=== PATIENT | male | born 1980 | race Caucasian/White ===

== ENCOUNTER 2022-08-12 17:40 | Emergency (ER) | payer OTHER ==
[~2022-08-12] VITALS: Ht 177.8 cm; Wt 100.0 kg
[~2022-08-12 17:40] MED LIST: OXYC-145 PO
[2022-08-12 17:47] VITALS: BP 143/92
[2022-08-12] MEDS ORDERED: LIDOCAINE 2%/EPI 1:100,000 inj. Multi-dose 20 ML VIAL IJ ONE (18:45)
[2022-08-12] MEDS ORDERED: TETanus/Pertussis (Acell)/Diphther VAC/PF (Tdap-Adult) 0.5ml syringe IMVAC ONE (18:45)
[2022-08-12] MEDS ORDERED: cephalexin 500mg capsule PO ONE (19:55)
[2022-08-12] MEDS ORDERED: CEPH250T PO (19:57)
== END 2022-08-12 20:42 | disposition home or self-care (01) ==
LOC: ER 17:41
DX: S61.215A Laceration without foreign body of left ring finger without damage to nail, initial encounter (principal); Z88.5 Allergy status to narcotic agent; X58.XXXA Exposure to other specified factors, initial encounter; Y93.89 Activity, other specified; Y92.89 Other specified places as the place of occurrence of the external cause; Y99.8 Other external cause status
CPT/HCPCS: 12001; 73130; 90471; 90715; 99283; A6222; J7030; A4565; A6449

== ENCOUNTER 2022-08-25 08:22 | Emergency (ER) | payer OTHER ==
[~2022-08-25] VITALS: Ht 175.3 cm; Wt 100.0 kg
[2022-08-25 08:31] VITALS: BP 112/74
== END 2022-08-25 11:45 | disposition home or self-care (01) ==
LOC: ER 08:23
DX: S61.215D Laceration without foreign body of left ring finger without damage to nail, subsequent encounter (principal); Z79.899 Other long term (current) drug therapy; X58.XXXD Exposure to other specified factors, subsequent encounter
CPT/HCPCS: 99281

== ENCOUNTER 2022-09-19 07:36 | Emergency (ER) | payer OTHER ==
[~2022-09-19] VITALS: Ht 177.8 cm; Wt 102.0 kg
[2022-09-19 07:40] VITALS: BP 132/80
[2022-09-19] MEDS ORDERED: MUPI22OI30 TOP (09:25)
== END 2022-09-19 10:34 | disposition home or self-care (01) ==
LOC: ER 07:37
DX: S61.305A Unspecified open wound of left ring finger with damage to nail, initial encounter (principal); Z88.5 Allergy status to narcotic agent; X58.XXXA Exposure to other specified factors, initial encounter; Y93.89 Activity, other specified; Y92.89 Other specified places as the place of occurrence of the external cause; Y99.8 Other external cause status
CPT/HCPCS: 99283

== ENCOUNTER 2022-10-05 19:08 | Emergency (ER) | payer OTHER ==
[~2022-10-05] VITALS: Ht 177.8 cm; Wt 97.3 kg
[2022-10-05 19:17] VITALS: BP 144/94
[2022-10-05] MEDS ORDERED: LIDOcaine Viscous 15ml cup MM ONE (20:00)
[2022-10-05] MEDS ORDERED: pantoprazole 40mg Tablet.DR PO ONE (20:00)
[2022-10-05] MEDS ORDERED: mag hydrox/Alum hydrox/simeth 30ml oral suspension PO ONE (20:00)
[2022-10-05 20:27] LABS: BASOPHILS # (AUTO) 0.1 X10'3 (0-0.2); EOSINOPHILS # (AUTO) 0.1 X10'3 (0-0.9); EOSINOPHILS % (AUTO) 0.7 % (0-6); HEMATOCRIT 46.3 % (42.0-52.0); HEMOGLOBIN 15.9 g/dl (14.0-17.9); LYMPHOCYTES # (AUTO) 3.6 X10'3 (1.1-4.8); MEAN CORPUSCULAR HEMOGLOBIN 30.7 PG (27.0-31.0); MEAN CORPUSCULAR HGB CONC 34.3 g/dL (33.0-36.5); MEAN CORPUSCULAR VOLUME 89.7 FL (78-98); MEAN PLATELET VOLUME 7.1 FL (7.4-10.4); MONOCYTES # (AUTO) 0.5 X10'3 (0-0.9); MONOCYTES % (AUTO) 7.4 % (2-12); NEUTROPHILS # (AUTO) 3.1 X10'3 (1.8-7.7); NEUTROPHILS % (AUTO) 41.9 % (42-75); PLATELET COUNT 416 X10'3 (140-440); RED BLOOD COUNT 5.16 X10'6 (4.70-6.10); RED CELL DISTRIBUTION WIDTH 13.8 % (11.5-14.5); WHITE BLOOD COUNT 7.4 X10'3 (4.5-11.0)
[2022-10-05 20:35] LABS: ALANINE AMINOTRANSFERASE 43 U/L (12-78); ALBUMIN 4.2 G/DL (3.4-5.0); ALBUMIN/GLOBULIN RATIO 1.2 (1.1-1.5); ALKALINE PHOSPHATASE 107 IU/L (46-116); ANION GAP 6 (8-16); ASPARTATE AMINO TRANSFERASE 20 U/L (10-37); BILIRUBIN,TOTAL 0.4 MG/DL (0.1-1.0); BLOOD UREA NITROGEN 15 MG/DL (7-18); BUN/CREATININE RATIO 15.6 (10.0-20.0); CALCIUM 9.2 MG/DL (8.5-10.1); CHLORIDE 105 MMOL/L (99-107); CREATININE 0.96 MG/DL (0.60-1.10); GLUCOSE 93 MG/DL (70-104); LIPASE 90 U/L (73-393); POTASSIUM 4.2 MMOL/L (3.5-5.1); SODIUM 140 MMOL/L (135-145); TOTAL PROTEIN 7.6 G/DL (6.4-8.2); eGFR 87 ML/MIN
[2022-10-05] MEDS ORDERED: PANT20TA18 PO (21:02)
== END 2022-10-05 21:19 | disposition home or self-care (01) ==
LOC: ER 19:10
DX: R10.13 Epigastric pain (principal); R63.0 Anorexia; R63.4 Abnormal weight loss; Z88.5 Allergy status to narcotic agent; Z79.899 Other long term (current) drug therapy; Z68.30 Body mass index [BMI] 30.0-30.9, adult
CPT/HCPCS: 36415; 80053; 83690; 85025; 99283

== ENCOUNTER 2022-10-18 21:21 | Emergency (ER) | payer OTHER ==
[~2022-10-18] VITALS: Ht 177.8 cm; Wt 90.0 kg
[~2022-10-18 21:21] MED LIST changes: +PANT20TA18 PO
[2022-10-18 21:29] VITALS: BP 121/81
[2022-10-18] MEDS ORDERED: ibuprofen tablet 400 MG TABLET PO ONE (23:10)
[2022-10-18] MEDS ORDERED: acetaminophen 325mg tablet PO ONE ×2 (23:10)
== END 2022-10-18 23:50 | disposition home or self-care (01) ==
LOC: ER 21:22
DX: J02.9 Acute pharyngitis, unspecified (principal); Z88.5 Allergy status to narcotic agent; Z79.899 Other long term (current) drug therapy
CPT/HCPCS: 87081; 87880; 99284